=== PATIENT | male | born 1995 | race Two or more races ===

== ENCOUNTER 2024-05-30 22:19 | Emergency (ER) | payer SELFPAY ==
[~2024-05-30] VITALS: Ht 177.8 cm; Wt 116.3 kg
[~2024-05-30 22:19] MED LIST: CEPH500C PO; IBUP-1456 PO
[2024-05-31 01:30] VITALS: PULSE 111; RESP 17; O2SAT 96
[2024-05-31 02:20] LABS: Basophils # (auto) 0.1 10 ^3/uL (0-0.2); Basophils % (auto) 0.9 % (0.0-2.0); Eosinophils # (auto) 0.3 10 ^3/uL (0-0.8); Eosinophils % (auto) 4.6 % (0.0-7.0); Hematocrit 43.4 % (41.0-53.0); Lymphocytes # (auto) 1.3 10 ^3/uL (0.4-5.4); Lymphocytes % (auto) 17.6 % (10.0-50.0); Mean Corpuscular Hemoglobin 29.3 pg (28.0-32.0); Mean Corpuscular Hgb Conc. 34.6 g/dL (32.0-36.0); Mean Corpuscular Volume 84.7 fL (80.0-100.0); Monocytes # (auto) 0.6 10 ^3/uL (0-1.3); Monocytes % (auto) 8.7 % (0.0-12.0); Neutrophils % (auto) 68.2 % (37.0-80.0); Nucleated Red Blood Cells % 0.1 %; Red Blood Cells 5.13 10^6/uL (4.5-5.90); Red Cell Distribution Width 13.5 % (11.8-14.3); White Blood Cell 7.4 10^3/uL (4.4-10.8)
[2024-05-31 02:39] LABS: Alanine Aminotransferase 135 U/L (7-40); Albumin 4.5 g/dL (3.2-4.8); Alkaline Phosphatase 152 U/L (46-116); Anion Gap 9 (5-15); Aspartate Aminotransferase 51 U/L (13-40); BUN/Creatinine Ratio 9.9 (10.0-20.0); Blood Urea Nitrogen 10 mg/dL (9-23); Calcium 9.5 mg/dL (8.7-10.4); Carbon Dioxide 26 mmol/L (20-30); Chloride 100 mmol/L (98-107); Glucose 137 mg/dL (74-106); Potassium 3.5 mmol/L (3.5-5.1); Sodium 135 mmol/L (136-145)
[2024-05-31 02:40] LABS: Bilirubin, Total 1.1 mg/dL (0.2-1.0); Total Protein 8.4 g/dL (5.7-8.2)
[2024-05-31 02:56] VITALS: PULSE 97; O2SAT 97
[2024-05-31 03:44] VITALS: TEMP 100
[2024-05-31] MEDS: ACETAMINOPHEN 325 MG TAB PO ONE (03:44)
[2024-05-31 03:54] VITALS: O2SAT 94
[2024-05-31] MEDS: LIDOCAINE W/ EPINEPHRINE 1.5 % INJ 5ML AMP IJ ONE (04:45)
[2024-05-31] MEDS: LIDOCAINE W/ EPINEPHRINE 1% 20ML VIAL ONE (04:46)
[2024-05-31 04:50] VITALS: BP 145/84; PULSE 97; RESP 26
[2024-05-31] MEDS: MORPHINE SULFATE 4 MG/ML SYR/VIAL IV ONE (04:50)
[2024-05-31] MEDS: ONDANSETRON HCL 4 MG/2 ML VIAL IV ONE (04:51)
[2024-05-31] MEDS: CLINDAMYCIN 900MG IV 50 ML IV ONE (04:52)
[2024-05-31] MEDS: LIDOCAINE W/ EPINEPHRINE 1% 20ML VIAL SC ONE (05:27)
[2024-05-31 05:33] LABS: Basophils # (auto) 0 10 ^3/uL (0-0.2); Basophils % (auto) 0.7 % (0.0-2.0); Eosinophils # (auto) 0.3 10 ^3/uL (0-0.8); Eosinophils % (auto) 4.8 % (0.0-7.0); Hematocrit 40.1 % (41.0-53.0); Hemoglobin 13.8 g/dL (13.5-17.5); Lymphocytes # (auto) 1.1 10 ^3/uL (0.4-5.4); Lymphocytes % (auto) 15.5 % (10.0-50.0); Mean Corpuscular Hemoglobin 29.1 pg (28.0-32.0); Mean Corpuscular Hgb Conc. 34.4 g/dL (32.0-36.0); Mean Corpuscular Volume 84.6 fL (80.0-100.0); Monocytes # (auto) 0.6 10 ^3/uL (0-1.3); Monocytes % (auto) 8.4 % (0.0-12.0); Neutrophils # (auto) 4.8 10 ^3/uL (1.6-8.6); Neutrophils % (auto) 70.6 % (37.0-80.0); Red Blood Cells 4.74 10^6/uL (4.5-5.90); Red Cell Distribution Width 13.3 % (11.8-14.3); White Blood Cell 6.8 10^3/uL (4.4-10.8)
[2024-05-31] MEDS ORDERED: NAP500T GT (05:33)
[2024-05-31] MEDS ORDERED: METR-344 PO (05:33)
[2024-05-31] MEDS ORDERED: CIPR-173 PO (05:33)
[2024-05-31 05:41] LABS: Alanine Aminotransferase 119 U/L (7-40); Albumin 4.1 g/dL (3.2-4.8); Alkaline Phosphatase 140 U/L (46-116); Anion Gap 9 (5-15); Aspartate Aminotransferase 45 U/L (13-40); BUN/Creatinine Ratio 12.2 (10.0-20.0); Blood Urea Nitrogen 10 mg/dL (9-23); Carbon Dioxide 23 mmol/L (20-30); Chloride 102 mmol/L (98-107); Glucose 112 mg/dL (74-106); Potassium 3.1 mmol/L (3.5-5.1); Sodium 134 mmol/L (136-145)
[2024-05-31 05:42] LABS: Total Protein 7.6 g/dL (5.7-8.2)
== END 2024-05-31 06:06 | disposition home or self-care (01) ==
LOC: ER 22:19
DX: L02.31 Cutaneous abscess of buttock (principal); E11.9 Type 2 diabetes mellitus without complications; I10 Essential (primary) hypertension; F17.210 Nicotine dependence, cigarettes, uncomplicated; F12.90 Cannabis use, unspecified, uncomplicated; Z79.1 Long term (current) use of non-steroidal anti-inflammatories (NSAID)
CPT/HCPCS: 10060; 36415; 80053; 85025; 96365; 96375; 99152; 99285; J2270; J2405; J3490

== ENCOUNTER 2024-06-02 13:25 | Emergency (ER) | payer SELFPAY ==
[~2024-06-02] VITALS: Ht 177.8 cm; Wt 116.7 kg
[~2024-06-02 13:25] MED LIST changes: +CIPR-173 PO; +METR-344 PO; +NAP500T GT
[2024-06-02 16:32] VITALS: BP 132/77; PULSE 78; RESP 17; TEMP 98.2; O2SAT 97
== END 2024-06-02 17:35 | disposition home or self-care (01) ==
LOC: ER 13:25
DX: S30.91XD Unspecified superficial injury of lower back and pelvis, subsequent encounter (principal); E11.9 Type 2 diabetes mellitus without complications; I10 Essential (primary) hypertension; F17.210 Nicotine dependence, cigarettes, uncomplicated; F12.90 Cannabis use, unspecified, uncomplicated; Z79.899 Other long term (current) drug therapy; Z79.1 Long term (current) use of non-steroidal anti-inflammatories (NSAID); X58.XXXD Exposure to other specified factors, subsequent encounter

== ENCOUNTER 2024-08-04 11:51 | Emergency (ER) | payer OTHER ==
[~2024-08-04] VITALS: Ht 175.3 cm; Wt 120.3 kg
[2024-08-04 13:17] VITALS: TEMP 98
[2024-08-04] MEDS ORDERED: CEPH500C PO (13:27)
[2024-08-04 15:33] VITALS: BP 121/87; PULSE 91; RESP 16; O2SAT 98
== END 2024-08-04 13:34 | disposition home or self-care (01) ==
LOC: ER 12:06
DX: S81.811A Laceration without foreign body, right lower leg, initial encounter (principal); I10 Essential (primary) hypertension; E11.9 Type 2 diabetes mellitus without complications; F17.210 Nicotine dependence, cigarettes, uncomplicated; W22.8XXA Striking against or struck by other objects, initial encounter; Y93.89 Activity, other specified; Y92.89 Other specified places as the place of occurrence of the external cause; Y99.8 Other external cause status
CPT/HCPCS: 12002